=== PATIENT | male | born 1955 | race Caucasian/White ===

== ENCOUNTER 2016-10-08 20:19 | Inpatient (IN) | payer OTHER ==
[2016-10-08] MEDS ORDERED: NORMAL SALINE 10 ML SYRINGE FLUSH IVP PRN (20:39)
[2016-10-08] MEDS ORDERED: Famotidine Inj 20 MG in Normal Saline Flush 10 ML IVP ONE (20:39)
[2016-10-08] MEDS ORDERED: Sodium Chloride 0.9% 1,000 ML PRIMARY IV ONE (20:39)
[2016-10-08] MEDS ORDERED: ONDANSETRON 4 MG/2 ML VIAL IVP ONE (20:39)
[2016-10-08] MEDS ORDERED: HYDROmorphone 2 MG/1 ML IVP ONE ×2 (20:39→21:10)
[2016-10-08 20:54] LABS: BASOPHILS # (AUTO) 0.03 10*3/UL; BASOPHILS % (AUTO) 0.4 % (0-1); HEMATOCRIT 44.2 % (42.0-52.0); HEMOGLOBIN 15.9 g/dL (14.0-18.0); IMM GRAN % (AUTO) 0.1 % (0-5); IMM GRAN# (AUTO) 0.01 10*3/UL; LYMPHOCYTES # (AUTO) 2.59 10*3/uL; LYMPHOCYTES % (AUTO) 34.9 % (10-50); MEAN CORPUSCULAR HEMOGLOBIN 32.5 PG (27-31); MEAN PLATELET VOLUME 10.3 FL (7.4-12.2); MONOCYTES # (AUTO) 0.89 10*3/UL (0.3-0.8); NEUTROPHILS # (AUTO) 3.75 10*3/UL; NEUTROPHILS % (AUTO) 50.6 % (50-80); RDW COEFFICIENT OF VARIATION 13.2 % (11.5-14.5); RED BLOOD COUNT 4.89 10^6/uL (4.70-6.10); WHITE BLOOD COUNT 7.42 10^3/uL (4.8-10.8)
[2016-10-08 20:58] LABS: PLATELET MORPHOLOGY COMMENT NORMAL MORPHOLOGY (NORM)
[2016-10-08 21:10] LABS: BILIRUBIN,TOTAL 0.9 mg/dL (0.3-1.2); BUN/CREATININE RATIO 22.3 (6-20); CALCIUM 9.9 mg/dL (8.7-10.7); CREATININE 1.3 mg/dL (0.70-1.50); POTASSIUM 4.2 meq/L (3.8-5.2); TOTAL PROTEIN 8.1 g/dL (6.1-8.0)
--- NOTE | 2016-10-08 21:22 | EKG ---
[address] [address] Measurements Intervals [place] Rate: 44 P: 44 CA: 163 QRS: 25 QRSD: 98 T: 26 QT: 449 QTc: 400 Interpretive Statements SINUS BRADYCARDIA No previous ECG available for comparison Electronically Signed On 10-09-16 12:25:28 [facility] by Devang Rodriguez [email or web address]
[2016-10-08] MEDS ORDERED: MORPHINE SULFATE 4 MG/1 ML IVP ONE (22:15)
--- NOTE | 2016-10-08 22:34 | DI ---
HISTORY: Right upper quadrant pain for 2 to 3 months. COMPARISON: None available. TECHNIQUE: Sonographic images of the abdomen were obtained and submitted for interpretation. FINDINGS: Liver: Limited evaluation without identified abnormal finding. Gallbladder: Distended with bile (12.5 x 5.2 x 6.1 cm), noting multiple shadowing gallstones. Positive sonographic Domínguez?s sign was reported by the performing technologist. Gallbladder wall thickenin-3 mm (upper limits of normal). Bile ducts: Common duct: Prominent, measuring 9 mm. Pancreas: Head and uncinate process: Evaluated portions without identified abnormality. Body and tail obscure d by bowel gas. Right kidney not visualized secondary to prominent bowel gas. IMPRESSION: 1. Gallstones with mild gallbladder enlargement and positive sonographic Domínguez's sign. Findings con cerning for acute cholecystitis in the appropriate clinical setting. No significant wall thickening, pericholecystic fluid or other findings of complicated cholecystitis. 2. Common duct enlargement, which raises the suspicion for common duct calculus. Correlation with la boratory values recommended. If concern for choledocholithiasis, dedicated MRCP can further evaluati on the biliary system. NOTE: The interpreting Radiologist was not present at the time of ultrasound interrogation.
--- NOTE | 2016-10-08 23:09 | DI ---
HISTORY: Severe right upper quadrant abdominal pain with nausea. Follow-up examination to ultrasoun d of the abdomen performed earlier this evening submitted to [facility] which identified abnormal gallbladd er. COMPARISON: Ultrasound from 50 minutes prior. TECHNIQUE: Helical CT scanning was performed from the lung bases, through the abdomen and pelvis, to the level of lesser trochanters following the administration of IV contrast material. MPR. Overall image quality is satisfactory. 382 images. FINDINGS: LUNG BASES/LOWER HEART: Basilar atelectasis and reticular and small nodular opacities reminiscent of fibrotic lung disease. Non-urgent referral to pulmonology recommended. No pericardial effusion. Mild atherosclerotic calcifications of the aorta and aortic valve calcifications. ABDOMEN/PELVIS: LIVER: Several subcentimeter hypodensities without aggressive features detected. Micro-nodular lonnie in suggestive of cirrhosis. Soft tissue density nodule adjacent to the right posterior medial liver (axial image 38). GALLBLADDER: Distended with bile with multiple calcified gallstones noted. Common duct is prominent (8-9 mm). A 2 mm calculus is noted near the ampullae of Vater (axial image 71), differential include s pancreatic glandular calcification versus small distal common duct stone. PANCREAS: No adjacent inflammatory change. ADRENAL GLANDS: Maintain their triangular shape. SPLEEN: Multiple calcifications. No acute abnormality. KIDNEYS: Anatomic location. No hydronephrosis. GREAT VESSELS: Enhance unremarkably, noting atherosclerotic vascular changes of the aorta and its br anch vessels. FREE INTRAPERITONEAL FLUID: No large volume. VARIABLY DISTENDED BOWEL LOOPS: Nonobstructive bowel gas pattern. Multiple colonic diverticuli witho ut adjacent inflammatory change noted. No evidence of appendicitis. OSSEOUS STRUCTURES: No acute osseous abnormality. Multilevel thoracic and lumbar degenerative gonzalez es. Chronic, left inferior rib fractures. IMPRESSION: 1. Distended gallbladder with multiple calcified gallstones noted concerning for acute cholecystitis. Common duct is prominent (8-9 mm) and a 2 mm calculus is noted near the ampullae of Vater (axial im age 69), differential includes pancreatic glandular calcification versus small distal common duct sto ne. 2. Micro-nodular hepatic margin suggestive of cirrhosis. 3. 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 Non-urgent referral to pulmonology recommended. 4. Marked diverticulosis; no findings of acute diverticulitis.
--- NOTE | 2016-10-09 00:01 | PDOC ---
History and Physical - History of Present Illness Date and Time of Service: 10/09/2016 1 AM Chief Complaint: Heart upper quadrant pain off few hours duration History of Present Illness: This is a 60 years old male with medical history significant for history of hypertension, hepatitis C on no medications who has been having right upper quadrant pain for few months maybe he would get an attack once a month each attack would last few hours and then it goes on its own sometimes he took some Zantac for it. About 3 days ago he had one attack that lasted a few hours and then resolved today he had another attack but this time he is more severe and intense and because of that he came into the ER. Pain felt in the right upper quadrant and goes to his back. He did vomit once. He is nauseated. He's been constipated few weeks. No other symptoms. No fever. He's been shaking but he attributed this to the pain. Past Medical History Medical History: 1. Hypertension. 2. Hepatitis C he said he used to use drugs when he was in his 20s but not anymore. 3. Had colonoscopy last year which showed polyps according to him Surgical History: Denied previous surgeries Family History: Reviewed an Not Pertinent Past Social History: He smokes a pack a day, doesn't drink, use drugs in his 20s not anymore. Tobacco Use: Current Every Day Smoker Do you dip or chew tobacco: No Substance Use Type: None Alcohol Use: None Medication / Allergies Home Medications: Home Medications Medication Instructions Recorded Confirmed Type Atenolol 1 tab PO QHS tab 06/15/16 10/09/16 History Lisinopril 1 tab PO DAILY tab 06/15/16 10/09/16 History Allergies/Adverse Reactions: Allergies Allergy/AdvReac Type Severity Reaction Status Date / Time No Known Allergies Allergy Verified 10/09/16 07:27 Review of Systems - Review of Systems All Systems: Reviewed & No Additional Complaints Except as Stated Exam - General General Appearance: POSITIVE: Mild Distress - Head Head Exam: POSITIVE: Normal Inspection, Atraumatic - Eye Eye Exam: POSITIVE: Normal Appearance - ENT ENT Exam: POSITIVE: Normal Exam - Neck Neck Exam: POSITIVE: Normal Inspection - Respiratory Respiratory Exam: POSITIVE: Clear to Auscultation - Bilaterally - Cardiovascular Cardiovascular Exam: POSITIVE: RRR - GI/Abdominal GI/Abdominal Exam: POSITIVE: Normal Bowel Sounds, Non Distended, Soft, No Organomegaly Additional GI/Abdominal Exam Details: There is upper quadrant tenderness elicited. Domínguez sign is positive. - Rectal Rectal Exam: POSITIVE: Deferred - External Exam: POSITIVE: Deferred - Extremities Extremities Exam: POSITIVE: Normal Inspection - Back Back Exam: POSITIVE: Normal Inspection - Neurological Neurological Exam: POSITIVE: Alert, Oriented x 3, CN II-XII Intact, Speech Intact / Clear, Moves All Extremities Equally - Psychiatric Psychiatric Exam: POSITIVE: Normal Affect - Integumentary Integumentary Exam: POSITIVE: Normal Color Results - Labs CBC and BMP: 10/08/16 20:47 10/09/16 06:07 - EKG Data Additional EKG Details: EKG shows sinus bradycardia - Imaging Status: Report Reviewed by Me (Ultrasound of the gallbladder showed the mild gallbladder enlargement and positive sonographic Domínguez sign. Finding concerning for acute cholecystitis. Common duct enlargement, which raises the suspicion for common duct calculus. CT of the abdomen showed distended gallbladder with multiple calcified gallstones noted concerning for acute cholecystitis. Common duct is prominent and 2 mm calculus is noted near the ampulla of vater, micronodular hepatic margin status of cirrhosis and probable basilar fibrotic lung disease, marked diverticulosis no finding of acute diverticulitis.) Assessment and Plan - Patient Problems (1) Acute cholecystitis Current Visit: Yes Status: Acute Comment: Clinical picture suggest acute cholecystitis. Continue IV fluid, pain medication and antibiotics. The ER physician did speak with Dr. Yuan will see him in the morning. His lipase was mildly elevated well repeat tomorrow. As there is a question of for biliary duct dilatation. (2) Hypertension Current Visit: Yes Status: Acute Comment: Somewhat bradycardic based on the EKG so we may cut back on the dosage of his atenolol.
[2016-10-09 00:03] LABS: CLARITY,URINE CLEAR (CLEAR); URINE SAMPLE TYPE CLEAN CATCH URINE
[2016-10-09 00:04] LABS: GLUCOSE, URINE (UA) NEGATIVE (NEG); PH,URINE 6.5 (5.0-8.5); PROTEIN,URINE TRACE mg/dl (NEG)
[2016-10-09 00:05] LABS: BILIRUBIN,URINE NEGATIVE (NEG); LEUKOCYTE ESTERASE ,URINE NEGATIVE (NEG); NITRATE,URINE NEGATIVE (NEG); OCCULT BLOOD,URINE NEGATIVE (NEG); UROBILINOGEN,URINE 0.2 EU/dL (0.2)
[2016-10-09] MEDS ORDERED: Sodium Chloride 0.9% 1,000 ML PRIMARY IV SCH (00:15)
[2016-10-09] MEDS ORDERED: Metoclopramide Inj 10 MG/2 ML VIAL IVP ONE (00:55)
[2016-10-09] MEDS ORDERED: HYDROmorphone 2 MG/1 ML IVP ONE (00:55)
[2016-10-09] MEDS: NORMAL SALINE 10 ML SYRINGE FLUSH IVP PRN ×4 (01:07→21:33)
[2016-10-09] MEDS ORDERED: Metoclopramide Inj 10 MG/2 ML VIAL IVP PRN (01:08)
[2016-10-09] MEDS: Piperacillin/Tazobactam Inj 3.375 GM in Sodium Chloride 0.9% 100 ML IV SCH ×4 (01:49→19:28)
[2016-10-09] MEDS: Sodium Chloride 0.9% 1,000 ML PRIMARY IV SCH ×3 (01:55→17:29)
--- NOTE | 2016-10-09 02:02 | PDOC ---
Abdomen/Flank HPI - General Chief Complaint: Abdomen Pain Stated Complaint: RUQ PAIN Date Seen by Provider: 10/08/16 Time Seen by Provider: 20:25 Source: POSITIVE: Patient, Spouse Exam Limitations: POSITIVE: No limitations Nurse's Notes Reviewed & Considered: Yes - History of Present Illness Initial Comments: The patient is a 60-year-old male. He states that since around 1830 he has had severe right upper quadrant abdominal pain. He states he last ate around 1730 at that time had a hamburger and topicals. He states that he has had similar, but less persistent or severe, episodes for the past 2 months. He has had associated vomiting. Past medical history shows that he takes atenolol and lisinopril for hypertension. No known allergies. No previous abdominal surgery. No known fevers or chills. No diarrhea, melena, hematochezia, hematemesis, dysuria or hematuria. Body Location Affected: REPORTS: Abdomen Timing: REPORTS: Abrupt Duration: 1-3 hours (Approximately 3 hours) Severity: Severe Quality: REPORTS: "Pain" Abdominal Pain Onset Location: REPORTS: RUQ, Epigastric Abdominal Pain Radiation: REPORTS: No radiation Context: REPORTS: None Modifying Factors: improves with: Vomiting, Eating (Onset about an hour and half after eating) Associated Symptoms: REPORTS: Nausea, Vomiting Similar Symptoms Previously: Yes (intermittently for past 2 months) Recent Care Received: REPORTS: Denies Any Prior Injuries Related to Current Complaint?: No - Patient Home Medications Home Medications: Home Medications Atenolol 1 tab PO QHS tab 06/15/16 Lisinopril 1 tab PO DAILY tab 06/15/16 - Patient Allergies Allergies/Adverse Reactions: Allergies Allergy/AdvReac Type Severity Reaction Status Date / Time No Known Allergies Allergy Verified 10/08/16 21:23 Past Medical History - heen HEENT History: Denies History Cardiovascular History: Hypertension Respiratory History: Denies History Gastrointestinal History: Denies History Genitourinary History: Denies History Endocrine History: Denies History Musculoskeletal History: Denies History Neurological History: Denies History Blood Disorders: Denies History Psychiatric History: Denies History History of Sexually Transmitted Diseases: No Male Reproductive History: Denies History Cancer History: Denies History In Past Year Been Physically Harmed or Verbally Threatened: No History of MDRO: No History of Other Communicable Diseases: No Tobacco Use: Current Every Day Smoker Alcohol Use: None Substance Use Type: None Previous Surgical History: No Significant Family History: No pertinent family hx Past Medical History Reviewed: Reviewed - No Changes ROS - Limitations ROS Limitations: No Limitations Constitution: REPORTS: Denies Symptoms Cardiovascular: REPORTS: Denies Cardiac Symptoms Respiratory: REPORTS: Denies Resp Symptoms Neurological: REPORTS: Denies Neuro Symptoms Gastrointestinal: REPORTS: Abdominal Pain, Nausea, Vomitting Endocrine: REPORTS: Denies Symptoms Musculoskeletal: REPORTS: Denies MS Symptoms Genitourinary: REPORTS: Denies Symptoms Eyes: REPORTS: Denies Symptoms ENT: REPORTS: Denies Symptoms Skin: REPORTS: Denies Skin Symptoms Lympathic: REPORTS: Denies Lympathic Symptoms Immunologic: POSITIVE: Denies Symptoms Psychiatric: POSITIVE: Denies Psych Symptoms Abdominal/Flank Pain PE - General Appearance General Appearance: POSITIVE: Alert, Cooperative, No Evidence of Trauma, Moderate Distress - HEENT HEENT: POSITIVE: Head Inspection Nml, Eyes Inspection Nml, Ears Inspection Nml, Nose Inspection Nml, Oral/Dental Inspect. Nml, Pharynx Inspect. Nml, PERRL, EOMI - Neck Neck: POSITIVE: Normal Inspection, No Apparent Injury - Respiratory Respiratory: POSITIVE: No Respiratory Distress, Breath Sounds Normal, Chest Non- Tender - Cardiovascular Cardiovascular: POSITIVE: Regular Rate and Rhythm, Heart Sounds Normal, Equal Pulses, Strong Pulses Peripheral Pulses: Radial (R): 2+, Radial (L): 2+ - Chest Chest: POSITIVE: Non Tender - Abdomen Abdomen: Soft: (All Quadrants), Normal Bowel Sounds: (All Quadrants), Denies Tenderness: (LLQ), (RLQ), (LUQ), No Splenomegaly: (All Quadrants), No Hepatomegaly: (All Quadrants), No Guarding: (All Quadrants), No Rebound: (All Quadrants), No Palpable Pulse: (All Quadrants), No Palpabale Mass: (All Quadrants), No Distention: (All Quadrants), No Rigidity: (All Quadrants), Tenderness Noted: (RUQ) Additional Abdominal Details: Abdominal examination shows bowel sounds to be present. Patient has severe pain on palpation right upper quadrant, especially just right of the epigastrium. Positive Domínguez's sign. No masses, organomegaly or rebound. 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 No para cholecystic fluid. There is some common duct enlargement. CT scan of abdomen and pelvis with IV contrast shows a distended gallbladder with multiple calcified gallstones and a common duct of 8- 9 mm. There is a 2 mm calculus near the ampulla of locked her. Pancreas shows no inflammatory changes. Lab Results Reviewed: Yes Lab Results:: Laboratory Results 10/08/16 10/08/16 Range/Units 20:47 23:40 WBC 7.42 (4.8-10.8) 10^3/uL RBC 4.89 (4.70-6.10) 10^6/uL Hgb 15.9 (14.0-18.0) g/dL Hct 44.2 (42.0-52.0) % MCV 90.4 H (80-90) FL MCH 32.5 H (27-31) PG MCHC 36.0 (33-37) g/dL RDW Std Deviation 43.0 (39-50) fL RDW Coeff of Nena 13.2 (11.5-14.5) % Plt Count 121 L (140-350) 10*3/uL MPV 10.3 (7.4-12.2) FL Immature Gran % (Auto) 0.1 (0-5) % Neut % (Auto) 50.6 (50-80) % Lymph % (Auto) 34.9 (10-50) % [place] % (Auto) 12.0 (5-15) % Eos % (Auto) 2.0 (0-8) % Baso % (Auto) 0.4 (0-1) % Immature Gran # (Auto) 0.01 10*3/UL Neut # (Auto) 3.75 10*3/UL Lymph # (Auto) 2.59 10*3/uL [place] # (Auto) 0.89 H (0.3-0.8) 10*3/UL Eos # (Auto) 0.15 10*3/UL Baso # (Auto) 0.03 10*3/UL WBC Morphology Comment Normal morphology (NORM) Plt Morphology Comment Normal morphology (NORM) RBC Morph Comment Normal morphology (NORM) Sodium 143 (135-145) meq/L Potassium 4.2 (3.8-5.2) meq/L Chloride 104 (98-112) meq/L Carbon Dioxide 26 (23-33) meq/L Anion Gap 13 (5-20) BUN 29 H (7-22) mg/dL Creatinine 1.3 (0.70-1.50) mg/dL Estimated GFR 56 (>60 ml/min/1.73m(2)) BUN/Creatinine Ratio 22.30 H (6-20) Glucose 116 H (78-110) mg/dL Calculated Osmolality 302.0 H (267-292) mOsm/kg Calcium 9.9 (8.7-10.7) mg/dL Total Bilirubin 0.9 (0.3-1.2) mg/dL AST 28 (21-57) IU/L ALT 46 (21-72) IU/L Alkaline Phosphatase 61 (38-126) IU/L Total Protein 8.1 H (6.1-8.0) g/dL Albumin 4.2 (3.5-4.8) g/dL Globulin 3.9 (2.50-4.10) g/dL Albumin/Globulin Ratio 1.00 L (1.3-2.0) mg/g Amylase 96 (30-110) U/L Lipase 315 H (23-300) IU/L Ur Collection Type Clean catch urine Urine Color Yellow Urine Clarity Clear (CLEAR) Urine pH 6.5 (5.0-8.5) Ur Specific [place] 1.020 (1.005-1.030) Urine Protein Trace (NEG) mg/dl Urine Glucose (UA) Negative (NEG) mg/dL Urine Ketones Small (NEG) Urine Occult Blood Negative (NEG) Urine Nitrate Negative (NEG) Urine Bilirubin Negative (NEG) Urine Urobilinogen 0.2 (0.2) EU/dL Ur Leukocyte Esterase Negative (NEG) Ur Culture Indicated? Culture not set EKG Interpreted/Reviewed By Me:: Yes (normal) EKG Interpretation:: POSITIVE: Normal Sinus Rhythm, Normal Rate, Normal Intervals, Normal [place], Normal QRS, Normal ST/T - Patient's Progress Pain Medication Addressed: POSITIVE: Yes (Patient medicated with Dilaudid, total 4 mg, and 4 mg morphine sulfate) School/Work Release Addressed: POSITIVE: Not Applicable Re-examine Time: 22:00 Re-Examine Comment: Pain somewhat less minutes still quite prominent; patient again medicated with morphine sulfate. Re-Examine Time: 23:25 Re-Examine Comment: Results of labs, ultrasound and CT scan discussed with patient and his . Patient still having an unacceptable amount of pain. Nausea is somewhat better. Decision to admit patient made. Status: POSITIVE: Unchanged, Re-Examined - Consult Consult (If Yes, Name of Consulting MD & Time Called): Yes (, surgeon, [id number]; Dr. Cook, hospitalist, [id number]) Consulting MD will see pt:: POSITIVE: [facility] [place] Admit Counseled: POSITIVE: Patient, Family, RE: Lab Results, RE: Radiology Results, RE : DX, RE: Need for F/U Patient Care Time - Estimated PCT Patient Care Time (In Minutes): 60 Vital Signs - Recent Vital Signs Vital Signs: Vital Signs (Last 8 hours) Temp Pulse Pulse Resp BP BP Pulse Ox 10/09/16 01:00 97.0 F 56 L 20 153/87 93 10/09/16 00:40 96.9 F 49 L 20 148/100 10/08/16 20:19 96.6 F L 59 L 22 142/98 98 - VS Reviewed Vital Signs Reviewed: Yes Discharge Clinical Impression: Abdominal pain, Cholecystitis, Nausea and vomiting Discharge Disposition: Admit to Inpatient Condition: Stable Date Decision to Admit to Inpatient: 10/08/16 Time Decision to Admit to Inpatient: 23:15
[2016-10-09] MEDS ORDERED: Influenza 16-17 Vaccine(4yrs+) 45 MCG/0.5 ML SYRINGE IM ONE (02:12)
[2016-10-09] MEDS: HYDROmorphone 2 MG/1 ML IVP PRN ×7 (05:02→21:33)
[2016-10-09 06:21] LABS: BASOPHILS # (AUTO) 0.01 10*3/UL; BASOPHILS % (AUTO) 0.2 % (0-1); EOSINOPHILS % (AUTO) 0 % (0-8); MEAN CORPUSCULAR HEMOGLOBIN 32.7 PG (27-31); NEUTROPHILS # (AUTO) 4.59 10*3/UL
[2016-10-09 06:27] LABS: HEMATOCRIT 43.2 % (42.0-52.0); HEMOGLOBIN 15.3 g/dL (14.0-18.0); IMM GRAN % (AUTO) 0.3 % (0-5); IMM GRAN# (AUTO) 0.02 10*3/UL; LYMPHOCYTES # (AUTO) 0.69 10*3/uL; LYMPHOCYTES % (AUTO) 11.4 % (10-50); MEAN CORPUSCULAR HGB CONC 35.4 g/dL (33-37); MEAN PLATELET VOLUME 10.5 FL (7.4-12.2); MONOCYTES # (AUTO) 0.72 10*3/UL (0.3-0.8); MONOCYTES % (AUTO) 11.9 % (5-15); NEUTROPHILS % (AUTO) 76.2 % (50-80); RDW COEFFICIENT OF VARIATION 13.3 % (11.5-14.5); RED BLOOD COUNT 4.68 10^6/uL (4.70-6.10); WHITE BLOOD COUNT 6.03 10^3/uL (4.8-10.8)
[2016-10-09 06:34] LABS: PROTHROMBIN TIME 10.7 secs (9.7-11.4)
[2016-10-09 06:39] LABS: ASPARTATE AMINO TRANSFERASE 28 IU/L (21-57); BILIRUBIN,TOTAL 0.9 mg/dL (0.3-1.2); BLOOD UREA NITROGEN 25 mg/dL (7-22); CALCIUM 8.9 mg/dL (8.7-10.7); CHLORIDE 108 meq/L (98-112); EST GLOMERULAR FILTRATION > 60 (>60 ml/min/1.73m(2)); GLUCOSE 143 mg/dL (78-110); POTASSIUM 4.5 meq/L (3.8-5.2); SODIUM 143 meq/L (135-145)
--- NOTE | 2016-10-09 07:56 | PDOC(PROG) ---
Date and Time of Service: 10/09/2016 7:53 AM Interval History: Subjective He continue to have the right upper quadrant pain, some nausea. He rates his pain when I saw him 6 out of 10. Although he was more sleepy. Objective : Data - Labs CBC and BMP: 10/09/16 06:07 10/09/16 06:07 Labs - Last 24 Hours: Laboratory Results 10/09/16 Range/Units 06:07 PT 10.7 (9.7-11.4) secs INR 1.04 (0.00-5.90) N/A Sodium 143 (135-145) meq/L Potassium 4.5 (3.8-5.2) meq/L Chloride 108 (98-112) meq/L Carbon Dioxide 24 (23-33) meq/L Anion Gap 11 (5-20) BUN 25 H (7-22) mg/dL Creatinine 1.0 (0.70-1.50) mg/dL Estimated GFR > 60 (>60 ml/min/1.73m(2)) BUN/Creatinine Ratio 25.00 H (6-20) Glucose 143 H (78-110) mg/dL Calculated Osmolality 301.0 H (267-292) mOsm/kg Calcium 8.9 (8.7-10.7) mg/dL Total Bilirubin 0.9 (0.3-1.2) mg/dL AST 28 (21-57) IU/L ALT 39 (21-72) IU/L Alkaline Phosphatase 55 (38-126) IU/L Total Protein 7.0 (6.1-8.0) g/dL Albumin 3.8 (3.5-4.8) g/dL Globulin 3.2 (2.50-4.10) g/dL Albumin/Globulin Ratio 1.10 L (1.3-2.0) mg/g Lipase 115 (23-300) IU/L Objective : Exam - General General Appearance: No Acute Distress, Cooperative - Head Head Exam: Normal Inspection - Eye Eye Exam: Normal Appearance - ENT ENT Exam: Normal Exam - Neck Neck Exam: Normal Inspection - Respiratory Respiratory Exam: Clear to Auscultation - Bilaterally - Cardiovascular Cardiovascular Exam: RRR - GI/Abdominal GI/Abdominal Exam: Normal Bowel Sounds, Non Distended, Soft Additional GI/Abdominal Exam Details: Right upper quadrant tenderness - Rectal Rectal Exam: Deferred - External Exam: Deferred - Extremities Extremities Exam: Normal Inspection - Back Back Exam: Normal Inspection - Neurological Neurological Exam: Alert, Oriented x 3, CN II-XII Intact, Moves All Extremities Equally Additional Neurological Exam Details: somewhat sleepy - Psychiatric Psychiatric Exam: Normal Affect - Integumentary Integumentary Exam: Normal Color Assessment and Plan - Patient Problems (1) Acute cholecystitis Current Visit: Yes Status: Acute Comment: Continue current antibiotics. Continue IV fluid and pain medications. He will be seen by Dr. Yuan today and will see his recommendation. Lipase is down to normal (2) Hypertension Current Visit: Yes Status: Acute Comment: His heart rate is better now compared to when he came in continue same medication (3) Hepatitis C Current Visit: Yes Status: Acute Comment: Need F/U as an outpatient. probably responsible for the mild thrombocytopenia. his INR is normal and albumin is normal
[2016-10-09 08:35] LABS: PLATELET MORPHOLOGY COMMENT NORMAL MORPHOLOGY (NORM)
[2016-10-09] MEDS ORDERED: LISINOPRIL 20 MG TABLET PO SCH (09:00)
[2016-10-09] MEDS ORDERED: NORMAL SALINE 10 ML SYRINGE FLUSH IVP PRN (09:55)
--- NOTE | 2016-10-09 10:07 | CONSULT ---
Consult Note - Consult Consult Date: 10/09/16 Reason for Consult: PreOp Consulation : General Surgery Requesting Physician: Dr. Cooper, Dr. Cook Primary Care Provider: GENARO BULLOCK - History of Present Illness History of Present Illness: This is 58-year-old gentleman who comes in with acute onset of right upper quadrant abdominal pain. Is associated nausea vomiting. He states that he's had this intermittently for the past 3 months. He denies ever being jaundice he denies acholic stools. Denies fever or chills. Patient had a CT scan and ultrasound which showed cholelithiasis common bile duct and slightly dilated. Thickening gallbladder wall. There is no paracystic fluid. CT scan does show a nodule posterior to the liver. Significance of this is unknown. Patient states that he is told he had hepatitis C. There is evidence that he may have some cirrhosis on CT scan. Review of Systems - Review of Systems -: Patient has high blood pressure. Patient denies any coronary artery disease. He denies any respiratory disease. He states that he no he has been told he has hepatitis C he has had no follow-up for this. He does not ever feel sick. He did break his pelvis but did not have any surgery for this. He denies aches cholic stools. Denies being jaundice. He denies diabetes. He denies in problem is GI tract. States had a colonoscopy and EGD within last year. Via systems otherwise unremarkable Past Medical History Medical History: 1. Hypertension. 2. Hepatitis C he said he used to use drugs when he was in his 20s but not anymore. 3. Had colonoscopy last year which showed polyps according to him Surgical History: Denied previous surgeries Family History: Reviewed an Not Pertinent Past Social History: He smokes a pack a day, doesn't drink, use drugs in his 20s not anymore. Tobacco Use: Current Every Day Smoker Do you dip or chew tobacco: No Substance Use Type: None Alcohol Use: None Medication / Allergies Home Medications: Home Medications Medication Instructions Recorded Confirmed Type Atenolol 1 tab PO QHS tab 06/15/16 10/09/16 History Lisinopril 1 tab PO DAILY tab 06/15/16 10/09/16 History Allergies/Adverse Reactions: Allergies Allergy/AdvReac Type Severity Reaction Status Date / Time No Known Allergies Allergy Verified 10/09/16 07:27 Exam - Vitals Vital Signs: Vital Signs Temperature 98.5 F Temperature Source Oral Pulse Rate [Apical] 74 Pulse Rate [Pulse Oximeter] 85 Pulse Rate 49 Respiratory Rate 20 Blood Pressure [Left Arm] 145/64 Blood Pressure 148/100 Pulse Ox 95 Oxygen Flow Rate 3 Oxygen Delivery Method Mask-Simple Height 5 ft 8 in Weight 106.413 kg - General General Appearance: POSITIVE: No Acute Distress, Cooperative - Head Head Exam: POSITIVE: Normocephalic - Eye Eye Exam: POSITIVE: PERRL, EOMI, No Scleral Icterus - Neck Neck Exam: POSITIVE: Full ROM, No Tenderness - Respiratory Respiratory Exam: POSITIVE: Clear to Auscultation - Bilaterally, Breathing Non Labored - Cardiovascular Cardiovascular Exam: POSITIVE: No Murmur - GI/Abdominal GI/Abdominal Exam: POSITIVE: Normal Bowel Sounds, Soft, No Masses, Positive for RUQ Pain, No Hepatomegaly, No Splenomegaly - Rectal Rectal Exam: POSITIVE: Deferred - External Exam: POSITIVE: Deferred - Extremities Extremities Exam: POSITIVE: Full ROM, No Clubbing Present, No Edema Present, No Cyanosis Present - Neurological Neurological Exam: POSITIVE: Alert, Oriented x 3, Reflexes Normal, CN II-XII Intact - Psychiatric Psychiatric Exam: POSITIVE: Normal Affect, Normal Mood - Integumentary Integumentary Exam: POSITIVE: Normal Color Results - Labs CBC and BMP: 10/09/16 06:07 10/09/16 06:07 Labs - Last 24 Hours: Laboratory Results 10/09/16 Range/Units 06:07 WBC 6.03 (4.8-10.8) 10^3/uL RBC 4.68 L (4.70-6.10) 10^6/uL Hgb 15.3 (14.0-18.0) g/dL Hct 43.2 (42.0-52.0) % MCV 92.3 H (80-90) FL MCH 32.7 H (27-31) PG MCHC 35.4 (33-37) g/dL RDW Std Deviation 43.8 (39-50) fL RDW Coeff of Nena 13.3 (11.5-14.5) % Plt Count 95 L (140-350) 10*3/uL MPV 10.5 (7.4-12.2) FL Immature Gran % (Auto) 0.3 (0-5) % Neut % (Auto) 76.2 (50-80) % Lymph % (Auto) 11.4 (10-50) % [place] % (Auto) 11.9 (5-15) % Eos % (Auto) 0 (0-8) % Baso % (Auto) 0.2 (0-1) % Immature Gran # (Auto) 0.02 10*3/UL Neut # (Auto) 4.59 10*3/UL Lymph # (Auto) 0.69 10*3/uL [place] # (Auto) 0.72 (0.3-0.8) 10*3/UL Eos # (Auto) 0 10*3/UL Baso # (Auto) 0.01 10*3/UL WBC Morphology Comment Normal morphology (NORM) Plt Morphology Comment Normal morphology (NORM) RBC Morph Comment Normal morphology (NORM) PT 10.7 (9.7-11.4) secs INR 1.04 (0.00-5.90) N/A Sodium 143 (135-145) meq/L Potassium 4.5 (3.8-5.2) meq/L Chloride 108 (98-112) meq/L Carbon Dioxide 24 (23-33) meq/L Anion Gap 11 (5-20) BUN 25 H (7-22) mg/dL Creatinine 1.0 (0.70-1.50) mg/dL Estimated GFR > 60 (>60 ml/min/1.73m(2)) BUN/Creatinine Ratio 25.00 H (6-20) Glucose 143 H (78-110) mg/dL Calculated Osmolality 301.0 H (267-292) mOsm/kg Calcium 8.9 (8.7-10.7) mg/dL Total Bilirubin 0.9 (0.3-1.2) mg/dL AST 28 (21-57) IU/L ALT 39 (21-72) IU/L Alkaline Phosphatase 55 (38-126) IU/L Total Protein 7.0 (6.1-8.0) g/dL Albumin 3.8 (3.5-4.8) g/dL Globulin 3.2 (2.50-4.10) g/dL Albumin/Globulin Ratio 1.10 L (1.3-2.0) mg/g Lipase 115 (23-300) IU/L Assessment and Plan - Patient Problems (1) Gallstone pancreatitis Current Visit: Yes Status: Acute (2) Acute cholecystitis Current Visit: Yes Status: Acute - Assessment / Plan Additional Assessment/Plan Details: At this point since patient's lipase was elevated with this and we had gallstone pancreatitis. I given 24 hours to subside. Therefore his surgery be tomorrow a.m. on 10/10/2016. I would recommend the patient having a laparoscopic cholecystectomy. I have discussed the pathophysiology about gallstones and gallbladder disease. I have discussed the risk of surgery and the potential complications that could occur with the surgery. I also discussed alternative treatment options. I have gone over the surgical technique with the patient. The patient understands this information. The patient will have an intraoperative cholangiogram to check for common duct stones. The patient be scheduled at the first available date. Questions that the patient had were answered.
[2016-10-09] MEDS: NICOTINE 21 MG /DAY PATCH TRANSDERM SCH (11:17)
[2016-10-09] MEDS ORDERED: ACETAMINOPHEN 500 MG TABLET PO ONE (15:36)
[2016-10-09] MEDS ORDERED: Sodium Chloride 0.9% 200 ML IV ONE (19:21)
[2016-10-09] MEDS ORDERED: IBUPROFEN 400 MG TABLET PO ONE (20:55)
[2016-10-09] MEDS ORDERED: ATENOLOL 50 MG TABLET PO SCH (21:00)
[2016-10-10] MEDS: NORMAL SALINE 10 ML SYRINGE FLUSH IVP PRN ×6 (00:38→19:07)
[2016-10-10] MEDS: HYDROmorphone 2 MG/1 ML IVP PRN ×9 (00:38→19:06)
[2016-10-10] MEDS: Piperacillin/Tazobactam Inj 3.375 GM in Sodium Chloride 0.9% 100 ML IV SCH ×2 (00:50→06:54)
[2016-10-10] MEDS: Sodium Chloride 0.9% 1,000 ML PRIMARY IV SCH ×3 (03:04→13:38)
[2016-10-10] MEDS ORDERED: NORMAL SALINE 100 ML IV ONE (04:45)
[2016-10-10] MEDS ORDERED: Sodium Chloride 0.9% 500 ML ONE (05:10)
[2016-10-10] MEDS ORDERED: Pantoprazole Inj 40 MG in Normal Saline Flush 10 ML IVP ONE (05:13)
[2016-10-10] MEDS: ONDANSETRON 4 MG/2 ML VIAL IVP PRN ×2 (05:19→10:53)
[2016-10-10 06:42] LABS: BASOPHILS # (AUTO) 0.01 10*3/UL; BASOPHILS % (AUTO) 0.1 % (0-1); EOSINOPHILS % (AUTO) 0 % (0-8); HEMATOCRIT 42.7 % (42.0-52.0); HEMOGLOBIN 14.4 g/dL (14.0-18.0); IMM GRAN % (AUTO) 0.2 % (0-5); IMM GRAN# (AUTO) 0.03 10*3/UL; LYMPHOCYTES # (AUTO) 1.32 10*3/uL; LYMPHOCYTES % (AUTO) 7.6 % (10-50); MEAN CORPUSCULAR HEMOGLOBIN 31.8 PG (27-31); MEAN CORPUSCULAR HGB CONC 33.7 g/dL (33-37); MEAN PLATELET VOLUME 10.5 FL (7.4-12.2); MONOCYTES # (AUTO) 1.84 10*3/UL (0.3-0.8); MONOCYTES % (AUTO) 10.6 % (5-15); NEUTROPHILS # (AUTO) 14.18 10*3/UL; NEUTROPHILS % (AUTO) 81.5 % (50-80); RDW COEFFICIENT OF VARIATION 13.8 % (11.5-14.5); RED BLOOD COUNT 4.53 10^6/uL (4.70-6.10); WHITE BLOOD COUNT 17.38 10^3/uL (4.8-10.8)
[2016-10-10 07:02] LABS: ASPARTATE AMINO TRANSFERASE 24 IU/L (21-57); BILIRUBIN,TOTAL 1.2 mg/dL (0.3-1.2); BLOOD UREA NITROGEN 23 mg/dL (7-22); CALCIUM 8.3 mg/dL (8.7-10.7); CHLORIDE 106 meq/L (98-112); CREATININE 1.1 mg/dL (0.70-1.50); EST GLOMERULAR FILTRATION > 60 (>60 ml/min/1.73m(2)); GLUCOSE 87 mg/dL (78-110); POTASSIUM 3.9 meq/L (3.8-5.2); SODIUM 138 meq/L (135-145); TOTAL PROTEIN 6.7 g/dL (6.1-8.0)
[2016-10-10 07:06] LABS: PLATELET MORPHOLOGY COMMENT NORMAL MORPHOLOGY (NORM)
[2016-10-10] MEDS ORDERED: fentaNYL Inj 100 MCG/2 ML VIAL IVP PRN (07:29)
[2016-10-10] MEDS ORDERED: Ondansetron ODT Tab 8 MG TAB PO PRN (07:29)
[2016-10-10] MEDS ORDERED: ATROPINE SULFATE 0.4 MG/1 ML VIAL IVP PRN (07:29)
[2016-10-10] MEDS ORDERED: HYDROmorphone 2 MG/1 ML IVP PRN (07:29)
[2016-10-10] MEDS ORDERED: NORMAL SALINE 10 ML SYRINGE FLUSH IVP PRN (07:29)
[2016-10-10] MEDS ORDERED: ONDANSETRON 4 MG/2 ML VIAL IVP PRN (07:29)
[2016-10-10] MEDS ORDERED: Lactated Ringers 1,000 ML PRIMARY IV SCH ×2 (07:30→10:00)
[2016-10-10] MEDS ORDERED: ROCURONIUM 10 MG/1 ML - 5 ML VIAL IVP ONE (07:40)
[2016-10-10] MEDS: NICOTINE 21 MG /DAY PATCH TRANSDERM SCH (08:34)
[2016-10-10] MEDS ORDERED: Ertapenem Inj 1 GM in Sodium Chloride 0.9% 100 ML IV SCH (09:00)
[2016-10-10] MEDS ORDERED: Sodium Chloride 0.9% 1,000 ML PRIMARY IV ONE ×2 (10:25→14:52)
[2016-10-10 11:47] LABS: BASOPHILS # (AUTO) 0.01 10*3/UL; BASOPHILS % (AUTO) 0.1 % (0-1); EOSINOPHILS % (AUTO) 0 % (0-8); HEMATOCRIT 42.3 % (42.0-52.0); HEMOGLOBIN 14.4 g/dL (14.0-18.0); IMM GRAN % (AUTO) 0.4 % (0-5); IMM GRAN# (AUTO) 0.07 10*3/UL; LYMPHOCYTES # (AUTO) 0.66 10*3/uL; LYMPHOCYTES % (AUTO) 3.6 % (10-50); MEAN CORPUSCULAR HEMOGLOBIN 32.4 PG (27-31); MEAN PLATELET VOLUME 10.8 FL (7.4-12.2); MONOCYTES # (AUTO) 1.91 10*3/UL (0.3-0.8); MONOCYTES % (AUTO) 10.3 % (5-15); NEUTROPHILS # (AUTO) 15.81 10*3/UL; NEUTROPHILS % (AUTO) 85.6 % (50-80); PLATELET MORPHOLOGY COMMENT NORMAL MORPHOLOGY (NORM); RDW COEFFICIENT OF VARIATION 13.7 % (11.5-14.5); RED BLOOD COUNT 4.44 10^6/uL (4.70-6.10); WHITE BLOOD COUNT 18.46 10^3/uL (4.8-10.8)
[2016-10-10] MEDS ORDERED: MORPHINE SULFATE 2 MG/1 ML IVP PRN (12:20)
--- NOTE | 2016-10-10 12:23 | PDOC(PROG) ---
Date and Time of Service: 10/10/2016 at 1245 Interval History: Patient states that he is feeling better but he increase the amount of fluids he needed white count increased and his lipase is also increased Objective : Data - Labs CBC and BMP: 10/10/16 11:44 10/10/16 06:20 Labs - Last 24 Hours: Laboratory Results 10/10/16 10/10/16 Range/Units 06:20 11:44 WBC 17.38 H 18.46 H (4.8-10.8) 10^3/uL RBC 4.53 L 4.44 L (4.70-6.10) 10^6/uL Hgb 14.4 14.4 (14.0-18.0) g/dL Hct 42.7 42.3 (42.0-52.0) % MCV 94.3 H 95.3 H (80-90) FL MCH 31.8 H 32.4 H (27-31) PG MCHC 33.7 34.0 (33-37) g/dL RDW Std Deviation 46.1 46.1 (39-50) fL RDW Coeff of Nena 13.8 13.7 (11.5-14.5) % Plt Count 84 L 83 L (140-350) 10*3/uL MPV 10.5 10.8 (7.4-12.2) FL Immature Gran % (Auto) 0.2 0.4 (0-5) % Neut % (Auto) 81.5 H 85.6 H (50-80) % Lymph % (Auto) 7.6 L 3.6 L (10-50) % [place] % (Auto) 10.6 10.3 (5-15) % Eos % (Auto) 0 0 (0-8) % Baso % (Auto) 0.1 0.1 (0-1) % Immature Gran # (Auto) 0.03 0.07 10*3/UL Neut # (Auto) 14.18 15.81 10*3/UL Lymph # (Auto) 1.32 0.66 10*3/uL [place] # (Auto) 1.84 H 1.91 H (0.3-0.8) 10*3/UL Eos # (Auto) 0 0 10*3/UL Baso # (Auto) 0.01 0.01 10*3/UL WBC Morphology Comment Normal morphology Normal morphology (NORM) Plt Morphology Comment Normal morphology Normal morphology (NORM) RBC Morph Comment Normal morphology Normal morphology (NORM) Sodium 138 (135-145) meq/L Potassium 3.9 (3.8-5.2) meq/L Chloride 106 (98-112) meq/L Carbon Dioxide 23 (23-33) meq/L Anion Gap 9 (5-20) BUN 23 H (7-22) mg/dL Creatinine 1.1 (0.70-1.50) mg/dL Estimated GFR > 60 (>60 ml/min/1.73m(2)) BUN/Creatinine Ratio 20.90 H (6-20) Glucose 87 (78-110) mg/dL Calculated Osmolality 288.0 (267-292) mOsm/kg Calcium 8.3 L (8.7-10.7) mg/dL Total Bilirubin 1.2 (0.3-1.2) mg/dL AST 24 (21-57) IU/L ALT 43 (21-72) IU/L Alkaline Phosphatase 45 (38-126) IU/L Total Protein 6.7 (6.1-8.0) g/dL Albumin 3.5 (3.5-4.8) g/dL Globulin 3.2 (2.50-4.10) g/dL Albumin/Globulin Ratio 1.00 L (1.3-2.0) mg/g Amylase 125 H (30-110) U/L Lipase 1328 H* (23-300) IU/L - Vital Signs Vital Signs and I&O: Vital Signs - Last Taken Temperature 97.8 F 10/10/16 11:03 Pulse Rate 74 10/10/16 11:03 Respiratory Rate 18 10/10/16 11:03 Blood Pressure 106/68 10/10/16 11:03 Pulse Ox 93 10/10/16 11:03 Intake and Output (24hr x 4 totals) 10/08/16 10/09/16 10/10/16 10/11/16 05:59 05:59 05:59 05:59 Intake Total 2778 2170 Output Total 250 1000 200 Balance -250 1778 1970 Objective : Exam - General General Appearance: No Acute Distress, Cooperative - Respiratory Respiratory Exam: Clear to Auscultation - Bilaterally - Cardiovascular Cardiovascular Exam: RRR - GI/Abdominal GI/Abdominal Exam: Soft, Positive for RUQ Pain Assessment and Plan - Patient Problems (1) Gallstone pancreatitis Current Visit: Yes Status: Acute (2) Acute cholecystitis Current Visit: Yes Status: Acute - Assessment / Plan Additional Assessment/Plan Details: Patient has developed increasing lipase indicating gallstone pancreatitis. This also fits picture was elevated white count and also increase amount of fluids needed. I think we need to hold off on surgery but do think patient needs an MRCP to see if he has a common duct stone. He does have a common duct stone and has not passed patient will need an ERCP. Patient's platelets were dropping most likely secondary to the Zosyn it has been stopped and switched to Invanz
[2016-10-10] MEDS: diphenhydrAMINE 50 MG/1 ML VIAL IVP PRN ×2 (12:30→19:07)
[2016-10-10 16:07] VITALS: RESP 16; TEMP 98.9
--- NOTE | 2016-10-10 17:05 | DI ---
History pancreatitis gallbladder disease. Prior examinations dated 10/08/16: Abdominal ultrasound and CT the abdomen showed cholecystitis based u yonis gallstones and probable common bile duct stone. Procedure: Examination performed on 1.5 Kirstin magnet in axial and coronal projection with MRCP. Findings: The gallbladder is indeed distended. There is some pericholecystic inflammation and there i s fluid along the hepatic margin. MRCP does show a dilated duct status approximately 9 mm in diameter. Review image / . The best image showing the distal common bile duct and the ampulla of Vater is 7/7 and there is an other image, and 95/120 which has a fair amount of image noise but the pixel appears to be an intralu falguni ductal stone just above the ampulla of Vater. On that basis, MSE concluded that the stone is st ill present in the common duct Regarding the pancreas, there is slight increased signal intensity, suggesting pancreatitis. No pseud ocyst or abscess is identified. Impression: Confirms cholecystitis with pericholecystic inflammation and fluid along the hepatic dome . The overall liver contour is unremarkable. There is some increased signal intensity in the pancreas suggesting pancreatitis. The distal common bile duct is difficult to visualize but the duct remains dilated and it does appear that the stone is still present in this area. Other abdominal viscera appear normal
--- NOTE | 2016-10-10 18:38 | DCSUMMARY ---
Hospitalization Summary Admit Date: 10/08/16 Discharge Date: 10/10/16 Primary Diagnosis:: acute cholecystitis with choledocholithiasis Hospital Course: This is a 60-year-old male that has a history of hepatitis C and hypertension who came in with abdominal pain and did not respond to Zantac. He was admitted and was found to have acute cholecystitis. His lipase initially was elevated, and it appeared that he had symptoms consistent with gallstone pancreatitis. A CT scan of the abdomen and pelvis was done and it showed what appeared to be acute cholecystitis and a dilated common bile duct. The patient was admitted with platelets at 121,000, and they trended down to 83,000 now. He continues to have pain. His lipase initially was normal and then went up to 1300. Given the rise in his lipase, platelets at a lower level, I did discuss this with the surgeon, and we felt the best course of action would be to get an MRCP to confirm choledocholithiasis. The test was done and it appeared that the images were little hazy in the area of the common bile duct but the radiologist felt that it was still dilated and that a stone was present. 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 He is afebrile, but did have some mild systolic blood pressure decreased with systolic in the 90s that responded to a liter bolus of fluid. His systolic blood pressure is currently 117. I called [facility] and spoke with Dr. Olivera, and he agreed to accept the patient. Currently, the patient does not have chest pain, shortness breath, he has been nauseous all day and his pain is responded the best to Dilaudid. We got the images loaded up on a CD. Assessment and Plan: 1. As per discharge assessments noted 2. Disposition: Patient will be transferred to [facility] 3. Condition on discharge, stable and improved. 4. Diet: Nothing by mouth 5. Activities: resume normal activities 6. Follow-Up: 1. Primary care provider one week post discharge. 2. 7. Medications at the Time of Discharge: Active Medications Generic Name Dose Route Start Last Admin Trade Name Freq PRN Reason Stop Dose Admin Atenolol 25 mg 10/09/16 21:00 10/09/16 20:57 Tenormin PO 25 mg BEDTIME CARMINA Administration Diphenhydramine HCl 25 mg 10/10/16 12:20 10/10/16 12:30 Benadryl Inj IVP 25 mg Q6H PRN Administration pruritis Hydromorphone HCl 0 mg 10/10/16 02:20 10/10/16 17:13 Dilaudid Inj IVP 3 mg Q2H PRN Administration Pain Sodium Chloride 25 mls @ 200 mls/hr 10/09/16 00:14 Normal Saline 0.9% IV .Post Infusion PRN No Primary IV for Flush ONLY Sodium Chloride 1,000 mls @ 150 mls/hr 10/10/16 04:43 10/10/16 13:38 Normal Saline PRIMARY IV 150 mls/hr .Q6H40M CARMINA Administration Ertapenem 1 gm/ Sodium 100 mls @ 200 mls/hr 10/10/16 09:00 10/10/16 09:14 Chloride IV 200 mls/hr Q24H CARMINA Administration Metoclopramide HCl 10 mg 10/09/16 01:08 10/10/16 03:13 Reglan Inj IVP 10 mg Q6H PRN Administration NAUSEA Morphine Sulfate 2 mg 10/10/16 12:20 10/10/16 16:21 Morphine Inj IVP 2 mg Q2H PRN Administration Pain Nicotine 1 patch 10/09/16 11:15 10/10/16 08:34 Nicoderm Cq 21mg Patch TRANSDERM 1 patch DAILY CARMINA Administration Patch Removal 1 10/10/16 09:00 10/10/16 08:34 Nicotine Patch TRANSDERM 1 DAILY CARMINA Administration Ondansetron HCl 4 mg 10/09/16 01:08 10/10/16 10:53 Zofran Inj IVP 4 mg Q6H PRN Administration NAUSEA Sodium Chloride 5 - 20 ml 10/09/16 00:14 10/10/16 04:33 Saline Flush IVP 10 ml BID PRN Administration Flush 8. Time, care, counseling and coordination of care for this discharge is greater than 30 minutes. Exam - Vitals Vital Signs: Vital Signs Temperature 98.9 F Temperature Source Temporal Artery Scan Pulse Rate [Apical] 80 Pulse Rate [Pulse Oximeter] 89 Pulse Rate 49 Respiratory Rate 16 Blood Pressure [Left Arm] 117/66 Blood Pressure 148/100 Pulse Ox 95 Oxygen Flow Rate 3 Oxygen Delivery Method Nasal Cannula Height 5 ft 8 in Weight 191 lb - General General Appearance: POSITIVE: No Acute Distress, Cooperative - Head Head Exam: POSITIVE: Atraumatic - Eye Eye Exam: POSITIVE: No Scleral Icterus - Respiratory Respiratory Exam: POSITIVE: Clear to Auscultation - Bilaterally, Breathing Non Labored - Cardiovascular Cardiovascular Exam: POSITIVE: RRR, No Murmur, No Clicks, No Gallops, No Rubs, No JVD - GI/Abdominal GI/Abdominal Exam: POSITIVE: Normal Bowel Sounds, Non Distended, Soft Additional GI/Abdominal Exam Details: Some mild tenderness to palpation. Mostly epigastric area and right upper quadrant. - Extremities Extremities Exam: POSITIVE: No Clubbing Present, No Edema Present, No Cyanosis Present - Neurological Neurological Exam: POSITIVE: Alert, Oriented x 3, Normal Gait, No Facial Droop, Speech Intact / Clear, Moves All Extremities Equally - Psychiatric Psychiatric Exam: POSITIVE: Normal Affect, Normal Mood Data Perinent Studies: Laboratory Results 10/08/16 10/08/16 10/09/16 Range/Units 20:47 23:40 06:07 WBC 7.42 6.03 (4.8-10.8) 10^3/uL RBC 4.89 4.68 L (4.70-6.10) 10^6/uL Hgb 15.9 15.3 (14.0-18.0) g/dL Hct 44.2 43.2 (42.0-52.0) % MCV 90.4 H 92.3 H (80-90) FL MCH 32.5 H 32.7 H (27-31) PG MCHC 36.0 35.4 (33-37) g/dL RDW Std Deviation 43.0 43.8 (39-50) fL RDW Coeff of Nena 13.2 13.3 (11.5-14.5) % Plt Count 121 L 95 L (140-350) 10*3/uL MPV 10.3 10.5 (7.4-12.2) FL Immature Gran % (Auto) 0.1 0.3 (0-5) % Neut % (Auto) 50.6 76.2 (50-80) % Lymph % (Auto) 34.9 11.4 (10-50) % [place] % (Auto) 12.0 11.9 (5-15) % Eos % (Auto) 2.0 0 (0-8) % Baso % (Auto) 0.4 0.2 (0-1) % Immature Gran # (Auto) 0.01 0.02 10*3/UL Neut # (Auto) 3.75 4.59 10*3/UL Lymph # (Auto) 2.59 0.69 10*3/uL [place] # (Auto) 0.89 H 0.72 (0.3-0.8) 10*3/UL Eos # (Auto) 0.15 0 10*3/UL Baso # (Auto) 0.03 0.01 10*3/UL WBC Morphology Comment Normal morphology Normal morphology (NORM) Plt Morphology Comment Normal morphology Normal morphology (NORM) RBC Morph Comment Normal morphology Normal morphology (NORM) PT 10.7 (9.7-11.4) secs INR 1.04 (0.00-5.90) N/A Sodium 143 143 (135-145) meq/L Potassium 4.2 4.5 (3.8-5.2) meq/L Chloride 104 108 (98-112) meq/L Carbon Dioxide 26 24 (23-33) meq/L Anion Gap 13 11 (5-20) BUN 29 H 25 H (7-22) mg/dL Creatinine 1.3 1.0 (0.70-1.50) mg/dL Estimated GFR 56 > 60 (>60 ml/min/1.73m(2)) BUN/Creatinine Ratio 22.30 H 25.00 H (6-20) Glucose 116 H 143 H (78-110) mg/dL Calculated Osmolality 302.0 H 301.0 H (267-292) mOsm/kg Calcium 9.9 8.9 (8.7-10.7) mg/dL Total Bilirubin 0.9 0.9 (0.3-1.2) mg/dL AST 28 28 (21-57) IU/L ALT 46 39 (21-72) IU/L Alkaline Phosphatase 61 55 (38-126) IU/L Total Protein 8.1 H 7.0 (6.1-8.0) g/dL Albumin 4.2 3.8 (3.5-4.8) g/dL Globulin 3.9 3.2 (2.50-4.10) g/dL Albumin/Globulin Ratio 1.00 L 1.10 L (1.3-2.0) mg/g Amylase 96 (30-110) U/L Lipase 315 H 115 (23-300) IU/L Ur Collection Type Clean catch urine Urine Color Yellow Urine Clarity Clear (CLEAR) Urine pH 6.5 (5.0-8.5) Ur Specific [place] 1.020 (1.005-1.030) Urine Protein Trace (NEG) mg/dl Urine Glucose (UA) Negative (NEG) mg/dL Urine Ketones Small (NEG) Urine Occult Blood Negative (NEG) Urine Nitrate Negative (NEG) Urine Bilirubin Negative (NEG) Urine Urobilinogen 0.2 (0.2) EU/dL Ur Leukocyte Esterase Negative (NEG) Ur Culture Indicated? Culture not set 10/10/16 10/10/16 Range/Units 06:20 11:44 WBC 17.38 H 18.46 H (4.8-10.8) 10^3/uL RBC 4.53 L 4.44 L (4.70-6.10) 10^6/uL Hgb 14.4 14.4 (14.0-18.0) g/dL Hct 42.7 42.3 (42.0-52.0) % MCV 94.3 H 95.3 H (80-90) FL MCH 31.8 H 32.4 H (27-31) PG MCHC 33.7 34.0 (33-37) g/dL RDW Std Deviation 46.1 46.1 (39-50) fL RDW Coeff of Nena 13.8 13.7 (11.5-14.5) % Plt Count 84 L 83 L (140-350) 10*3/uL MPV 10.5 10.8 (7.4-12.2) FL Immature Gran % (Auto) 0.2 0.4 (0-5) % Neut % (Auto) 81.5 H 85.6 H (50-80) % Lymph % (Auto) 7.6 L 3.6 L (10-50) % [place] % (Auto) 10.6 10.3 (5-15) % Eos % (Auto) 0 0 (0-8) % Baso % (Auto) 0.1 0.1 (0-1) % Immature Gran # (Auto) 0.03 0.07 10*3/UL Neut # (Auto) 14.18 15.81 10*3/UL Lymph # (Auto) 1.32 0.66 10*3/uL [place] # (Auto) 1.84 H 1.91 H (0.3-0.8) 10*3/UL Eos # (Auto) 0 0 10*3/UL Baso # (Auto) 0.01 0.01 10*3/UL WBC Morphology Comment Normal morphology Normal morphology (NORM) Plt Morphology Comment Normal morphology Normal morphology (NORM) RBC Morph Comment Normal morphology Normal morphology (NORM) PT (9.7-11.4) secs INR (0.00-5.90) N/A Sodium 138 (135-145) meq/L Potassium 3.9 (3.8-5.2) meq/L Chloride 106 (98-112) meq/L Carbon Dioxide 23 (23-33) meq/L Anion Gap 9 (5-20) BUN 23 H (7-22) mg/dL Creatinine 1.1 (0.70-1.50) mg/dL Estimated GFR > 60 (>60 ml/min/1.73m(2)) BUN/Creatinine Ratio 20.90 H (6-20) Glucose 87 (78-110) mg/dL Calculated Osmolality 288.0 (267-292) mOsm/kg Calcium 8.3 L (8.7-10.7) mg/dL Total Bilirubin 1.2 (0.3-1.2) mg/dL AST 24 (21-57) IU/L ALT 43 (21-72) IU/L Alkaline Phosphatase 45 (38-126) IU/L Total Protein 6.7 (6.1-8.0) g/dL Albumin 3.5 (3.5-4.8) g/dL Globulin 3.2 (2.50-4.10) g/dL Albumin/Globulin Ratio 1.00 L (1.3-2.0) mg/g Amylase 125 H (30-110) U/L Lipase 1328 H* (23-300) IU/L Ur Collection Type Urine Color Urine Clarity (CLEAR) Urine pH (5.0-8.5) Ur Specific [place] (1.005-1.030) Urine Protein (NEG) mg/dl Urine Glucose (UA) (NEG) mg/dL Urine Ketones (NEG) Urine Occult Blood (NEG) Urine Nitrate (NEG) Urine Bilirubin (NEG) Urine Urobilinogen (0.2) EU/dL Ur Leukocyte Esterase (NEG) Ur Culture Indicated? Patient Problems - Patient Problem List (1) Choledocholithiasis Current Visit: Yes Status: Acute (2) Acute cholecystitis Current Visit: Yes Status: Acute (3) Gallstone pancreatitis Current Visit: Yes Status: Acute (4) Hypertension Current Visit: Yes Status: Acute Qualifiers: Hypertension type: essential hypertension Qualified Description: Essential hypertension Qualifier Code(s): (I10) Essential (primary) hypertension (5) Hepatitis C Current Visit: Yes Status: Acute Qualifiers: Viral hepatitis chronicity: chronic Hepatic coma status: without hepatic coma Qualified Description: Chronic hepatitis C without hepatic coma Qualifier Code(s): (B18.2) Chronic viral hepatitis C
== END 2016-10-10 19:33 | disposition short-term general hospital (02) | DRG 444 ==
LOC: ER 20:19 → MED/SURG 23:44
PROVIDERS: ADMIT Internal Medicine; ATTEND Internal Medicine
DX: K80.00 Calculus of gallbladder with acute cholecystitis without obstruction (principal); K85.10 Biliary acute pancreatitis without necrosis or infection; I10 Essential (primary) hypertension; B19.20 Unspecified viral hepatitis C without hepatic coma; D69.6 Thrombocytopenia, unspecified
CPT/HCPCS: 36415; 74177; 74181; 76705; 80053; 81003; 82150; 83690; 85025; 85610; 93005; 93010; 94761; 96361; 96374; 96375; 96376; 99284; J1170; J1200; J1335; J2270; J2405; J2543; J2765; J3490; J7030; J7040; J7050; J7120

== ENCOUNTER → 2016-11-22 | Outpatient (CLI) | payer OTHER ==
[2016-11-22 09:42] LABS: BASOPHILS # (AUTO) 0.02 10*3/UL; BASOPHILS % (AUTO) 0.5 % (0-1); HEMATOCRIT 42.3 % (42.0-52.0); HEMOGLOBIN 14.9 g/dL (14.0-18.0); IMM GRAN % (AUTO) 0.5 % (0-5); IMM GRAN# (AUTO) 0.02 10*3/UL; LYMPHOCYTES # (AUTO) 1.22 10*3/uL; LYMPHOCYTES % (AUTO) 28.5 % (10-50); MEAN CORPUSCULAR HEMOGLOBIN 31.7 PG (27-31); MEAN CORPUSCULAR HGB CONC 35.2 g/dL (33-37); MEAN PLATELET VOLUME 10.1 FL (7.4-12.2); MONOCYTES % (AUTO) 16.4 % (5-15); NEUTROPHILS # (AUTO) 2.15 10*3/UL; NEUTROPHILS % (AUTO) 50.1 % (50-80); RDW COEFFICIENT OF VARIATION 14.4 % (11.5-14.5); WHITE BLOOD COUNT 4.28 10^3/uL (4.8-10.8)
[2016-11-22 09:45] LABS: PLATELET MORPHOLOGY COMMENT NORMAL MORPHOLOGY (NORM)
[2016-11-22 09:48] LABS: PROTHROMBIN TIME 10.2 secs (9.7-11.4)
[2016-11-22 10:04] LABS: ASPARTATE AMINO TRANSFERASE 116 IU/L (21-57); BILIRUBIN,TOTAL 0.7 mg/dL (0.3-1.2); BLOOD UREA NITROGEN 14 mg/dL (7-22); CALCIUM 9.5 mg/dL (8.7-10.7); CHLORIDE 104 meq/L (98-112); CREATININE 0.7 mg/dL (0.70-1.50); EST GLOMERULAR FILTRATION > 60 (>60 ml/min/1.73m(2)); GLUCOSE 90 mg/dL (78-110); POTASSIUM 4.1 meq/L (3.8-5.2); SODIUM 141 meq/L (135-145); TOTAL PROTEIN 7.4 g/dL (6.1-8.0)
== END ==
LOC: LAB 09:17
PROVIDERS: ATTEND Internal Medicine Gastroenterology
DX: B18.2 Chronic viral hepatitis C (principal); K74.60 Unspecified cirrhosis of liver
CPT/HCPCS: 36415; 80053; 85025; 85610; 87902

== ENCOUNTER → 2016-11-24 | Outpatient (CLI) | payer OTHER ==
--- NOTE | 2016-11-24 09:43 | DI ---
US ABDOMEN LIMITED,11/24/2016 8:17 AM: Clinical History: Chronic hepatitis C with cirrhosis. Previous Exam: None at this facility. Findings: Multiple grayscale and color Doppler sonographic images are obtained through the right upper quadrant , and demonstrates a normal-appearing liver with some possible fatty infiltration. The right kidney measures 10.3 cm in length without hydronephrosis nor nephrolithiasis. The common bile duct was normal measuring 3 mm. The gallbladder is surgically absent. The right kidney measures 10.3 cm in length without hydronephrosis nor nephrolithiasis. The aorta measures 3.2 cm within the proximal abdominal aorta. Impression: Mild prominence of the proximal abdominal aorta. Status post cholecystectomy.
== END ==
LOC: US 08:13
PROVIDERS: ATTEND Internal Medicine Gastroenterology
DX: B18.2 Chronic viral hepatitis C (principal); K74.60 Unspecified cirrhosis of liver
CPT/HCPCS: 76705

== ENCOUNTER → 2016-11-29 | Outpatient (CLI) | payer OTHER | LOC: LAB 10:53 | PROVIDERS: ATTEND Internal Medicine Gastroenterology | DX: B18.2 Chronic viral hepatitis C (principal); K74.60 Unspecified cirrhosis of liver | CPT/HCPCS: 87522 ==

== ENCOUNTER → 2017-01-27 | Outpatient (CLI) | payer OTHER ==
[2017-01-27 08:45] LABS: BASOPHILS # (AUTO) 0.04 10*3/UL; BASOPHILS % (AUTO) 0.8 % (0-1); EOSINOPHILS # (AUTO) 0.28 10*3/UL; EOSINOPHILS % (AUTO) 5.4 % (0-8); HEMATOCRIT 46.8 % (42.0-52.0); HEMOGLOBIN 16.5 g/dL (14.0-18.0); LYMPHOCYTES # (AUTO) 1.65 10*3/uL; MEAN CORPUSCULAR HEMOGLOBIN 30.8 PG (27-31); MEAN CORPUSCULAR HGB CONC 35.3 g/dL (33-37); MEAN CORPUSCULAR VOLUME 87.5 FL (80-90); MEAN PLATELET VOLUME 9.6 FL (7.4-12.2); MONOCYTES # (AUTO) 0.54 10*3/UL (0.3-0.8); MONOCYTES % (AUTO) 10.4 % (5-15); NEUTROPHILS # (AUTO) 2.66 10*3/UL; NEUTROPHILS % (AUTO) 51.3 % (50-80); RED BLOOD COUNT 5.35 10^6/uL (4.70-6.10)
[2017-01-27 08:46] LABS: PLATELET MORPHOLOGY COMMENT NORMAL MORPHOLOGY (NORM); RBC MORPHOLOGY COMMENT NORMAL MORPHOLOGY (NORM); WBC MORPHOLOGY COMMENT NORMAL MORPHOLOGY (NORM)
[2017-01-27 09:23] LABS: BLOOD UREA NITROGEN 17 mg/dL (7-22); BUN/CREATININE RATIO 18.88 (6-20); CALCIUM 9.8 mg/dL (8.7-10.7); EST GLOMERULAR FILTRATION > 60 (>60 ml/min/1.73m(2)); SERUM ALBUMIN 3.9 g/dL (3.5-4.8)
== END ==
LOC: LAB 08:31
PROVIDERS: ATTEND Internal Medicine Gastroenterology
DX: B18.2 Chronic viral hepatitis C (principal); Z79.899 Other long term (current) drug therapy
CPT/HCPCS: 36415; 80053; 85025; 87522